=== PATIENT | female | born 1960 | race Caucasian/White ===

== ENCOUNTER 2021-05-20 06:57 | Outpatient (REF) | payer OTHER, SELFPAY ==
[2021-05-20 07:13] LABS: Hemoglobin 11.5 g/dl (12.0-16.0); Mean Corpuscular HGB Conc 31.9 g/dl (31.0-35.0); Mean Corpuscular Hemoglobin 33.6 pg (27.0-33.0); Mean Corpuscular Volume 105.3 fL (80-98); Mean Platelet Volume 9.4 fL (9.4-12.3); Platelet Count 446 X10*3/uL (160-400); Red Blood Count 3.42 X10*6/uL (4.20-5.50); Red Cell Distribution Width 12.9 % (11.0-16.0); White Blood Count 8.3 X10*3/uL (4.8-10.8)
[2021-05-20 07:34] LABS: Alanine Aminotransferase 12 U/L (0-31); Albumin Level 3.1 g/dL (3.5-5.0); Alkaline Phosphatase 91 U/L (39-117); Anion Gap 13 (12-20); Aspartate Amino Transferase 19 U/L (5-31); Bilirubin Total 0.2 mg/dL (0.0-1.0); Blood Urea Nitrogen 16 mg/dL (9-16); Calcium 8.7 mg/dL (8.4-10.2); Carbon Dioxide 28 mmol/L (22-29); Chloride 105 mmol/L (96-108); Estimated Glomerular Filt Rate > 60; Glucose Random 80 mg/dL (60-115); Sodium 142 mmol/L (135-145); Total Protein 6.5 g/dL (6.5-8.0)
[2021-05-20 08:09] LABS: Carbamazepine Tegretol 4.2 mcg/mL (5.0-12.0); Valproate 22.6 mcg/mL (50.0-100.0)
== END 2021-05-20 06:58 | disposition home or self-care (01) ==
LOC: HO.MMNH1L 06:57
PROVIDERS: Visit Provider Family Medicine
DX: S72.001D Fracture of unspecified part of neck of right femur, subsequent encounter for closed fracture with routine healing (principal); G40.909 Epilepsy, unspecified, not intractable, without status epilepticus; Z79.899 Other long term (current) drug therapy
CPT/HCPCS: 36415; 80053; 80156; 80164; 80185; 85027

== ENCOUNTER 2021-05-26 21:20 | Outpatient (REF) | payer OTHER, SELFPAY | END 2021-05-26 21:21 | disposition home or self-care (01) | LOC: HO.MMNH1L 21:20 | PROVIDERS: Visit Provider Family Medicine | DX: Z13.89 Encounter for screening for other disorder (principal) ==

== ENCOUNTER 2021-06-02 00:20 | Outpatient (REF) | payer OTHER, SELFPAY | END 2021-06-02 00:21 | disposition home or self-care (01) | LOC: HO.MMNH1L 00:20 | PROVIDERS: Visit Provider Family Medicine | DX: Z13.89 Encounter for screening for other disorder (principal) ==

== ENCOUNTER 2021-07-29 15:41 | Outpatient (REF) | payer OTHER, SELFPAY ==
[2021-07-29 17:05] LABS: Carbamazepine Tegretol 4.1 mcg/mL (5.0-12.0); Phenytoin Dilantin 11.3 ug/mL (10.0-20.0)
== END 2021-07-29 15:42 | disposition home or self-care (01) ==
LOC: HO.LAB 15:41
PROVIDERS: Visit Provider Psychiatry & Neurology Neurology
DX: G40.909 Epilepsy, unspecified, not intractable, without status epilepticus (principal); Z79.899 Other long term (current) drug therapy
CPT/HCPCS: 36415; 80156; 80185

== ENCOUNTER 2023-08-02 12:04 | Outpatient (REF) | payer OTHER, SELFPAY ==
[2023-08-02 13:36] LABS: Carbamazepine Tegretol 3.8 mcg/mL (5.0-12.0); Phenytoin Dilantin 15.7 ug/mL (10.0-20.0); Valproate 57.7 mcg/mL (50.0-100.0)
== END 2023-08-02 12:05 | disposition home or self-care (01) ==
LOC: HO.LAB 12:04
PROVIDERS: Visit Provider Psychiatry & Neurology Neurology
DX: G40.909 Epilepsy, unspecified, not intractable, without status epilepticus (principal)
CPT/HCPCS: 36415; 80156; 80164; 80185

== ENCOUNTER 2023-09-06 11:57 | Outpatient (REF) | payer OTHER, SELFPAY ==
[2023-09-06 12:04] VITALS: BP 135/81; PULSE 90; RESP 18; TEMP 36.4; O2SAT 98
[2023-09-06 12:08] VITALS: BMI 29.4
[2023-09-06 12:10] VITALS: BP 135/81; PULSE 90; RESP 18; TEMP 36.4; O2SAT 98
[2023-09-06 15:25] VITALS: BMI 29.4
== END 2023-09-06 11:58 | disposition home or self-care (01) ==
LOC: HO.MS 11:57
PROVIDERS: PCP Internal Medicine; Visit Provider Ophthalmology
PROC: (CPT 66761; principal; 2023-09-06 16:40)
DX: H40.031 Anatomical narrow angle, right eye (principal)
CPT/HCPCS: 66761

== ENCOUNTER 2023-09-13 11:36 | Outpatient (REF) | payer OTHER, SELFPAY ==
[2023-09-13 11:41] VITALS: BMI 27.6
[2023-09-13 11:42] VITALS: BP 142/86; PULSE 84; RESP 18; TEMP 35.8; O2SAT 98
== END 2023-09-13 11:37 | disposition home or self-care (01) ==
LOC: HO.MS 11:36
PROVIDERS: PCP Internal Medicine; Visit Provider Ophthalmology
PROC: (CPT 66761; principal; 2023-09-13 14:40)
DX: H40.032 Anatomical narrow angle, left eye (principal)
CPT/HCPCS: 66761

== ENCOUNTER 2024-01-12 09:50 | Outpatient (REF) | payer OTHER, SELFPAY ==
[2024-01-12 10:48] LABS: Valproate 65.2 mcg/mL (50.0-100.0)
[2024-01-12 10:54] LABS: Phenytoin Dilantin 5.3 ug/mL (10.0-20.0)
== END 2024-01-12 09:51 | disposition home or self-care (01) ==
LOC: HO.LAB 09:50
PROVIDERS: PCP Internal Medicine; Visit Provider Psychiatry & Neurology Neurology
DX: G40.909 Epilepsy, unspecified, not intractable, without status epilepticus (principal); Z79.899 Other long term (current) drug therapy
CPT/HCPCS: 36415; 80156; 80164; 80185

== ENCOUNTER 2024-04-12 10:10 | Outpatient (REF) | payer OTHER, SELFPAY ==
[2024-04-12 12:07] LABS: Valproate 61.7 mcg/mL (50.0-100.0)
== END 2024-04-12 10:11 | disposition home or self-care (01) ==
LOC: HO.LAB 10:10
PROVIDERS: PCP Internal Medicine; Visit Provider Psychiatry & Neurology Neurology
DX: G40.909 Epilepsy, unspecified, not intractable, without status epilepticus (principal)
CPT/HCPCS: 36415; 80156; 80164

== ENCOUNTER 2025-08-08 13:32 | Outpatient (AMB) | payer OTHER, SELFPAY ==
--- NOTE | 2025-08-08 13:33 | A.OFFVIS_ITS ---
Intake Visit Reasons: 6M Sz Allergies No Known Allergies Allergy (Verified 08/08/25 13:34) Medication List - Last Reconciled 08/08/25 by Shannen Landa CNP alprazolam 0.5 mg PO Q12H PRN carbamazepine 200 mg PO QID divalproex orally 1 tablet three times a day and 2 tablets at bedtime; naproxen 500 mg PO Q12H PRN phenytoin sodium extended mg PO DAILY sumatriptan succinate take 1 tab at onset of headache; if no relief, may repeat 1 tab after at least 2 hrs; max = 2 tabs/24 hrs PO HPI Comments Details: No seizures. Under a lot of stress lately, as her son found out he has cancer again (third time, and has appointment next month in [place]), and has upcoming surgery. More anxious and asking for alprazolam refill. Few occasional migraines that can be triggered by stress and needs sumatriptan refill. Balance was stable, no falls. Overall, her balance is much better after adjusting her medications, but still a bit unsteady. Brain MRI on 11/19/23 at [facility] shows disproportionate cerebellar atrophy and mild, confluent periventricular white matter hyperintensity. The cerebellar atrophy was also evident on her CT scan done in April 2023. MRI of the brain in 2020 was normal. 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 She had multiple falls in 6 month period. Leg feel weak at times. Fell weeding and hit head on curb with black eye in summer 2022. Has been dizzy. Broke her left knee cap 08/02/21 and still has pain. No more periods of things jumping vertically in her vision. Substance Abuse Clinician noted [employer]. puts out her meds and ensures she takes them. She usually stares and does not speak and may not be aware. 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 She describes them as a staring episode that can last for a few seconds can occur as often as once a week. She does not drive. She takes her medications faithfully. No other health issues. Her migraines are recurring occasionally. Review of Systems Const Denies chills, Denies daytime sleepiness, Denies difficulty sleeping, Denies fatigue, Denies fever(s), Denies frequent falls, Reports headache(s), Denies increased appetite, Denies poor appetite, Denies snoring, Denies weakness, Denies weight gain and Denies weight loss Eyes Denies loss of vision ENT Denies vertigo, Denies dizziness, Reports headache(s) and Denies neck pain Card Denies chest pain at rest, Denies chest pain with activity, Denies syncope, Denies leg edema, Denies palpitations, Denies dyspnea and Denies dyspnea on exertion Resp Denies cough, Denies dyspnea, Denies dyspnea on exertion and Denies snoring GI Denies abdominal pain, Denies constipation, Denies heartburn, Denies diarrhea and Denies nausea Denies urinary frequency, Denies urinary incontinence and Denies urinary urgency Musc Denies abnormal gait, Denies back pain, Denies myalgias, Denies arthralgias, Denies neck pain, Denies numbness and Denies tingling Neuro Denies abnormal gait, Denies vertigo, Denies dizziness, Denies syncope, Denies frequent falls, Reports headache(s), Denies lack of coordination, Denies loss of vision, Denies memory loss, Denies numbness, Denies Other visual disturbances, Denies restless legs, Denies seizure-like activity, Denies tingling, Denies paresthesias, Denies tremor(s), Denies weakness and Reports other (balance difficulty) Psych Denies anxiety, Denies depression, Denies auditory hallucinations, Denies memory loss and Denies visual hallucinations Endo Denies fatigue and Denies palpitations Physical Exam Const Other: General Appearance:? normal, in no acute distress. Heart:? S1, S2 normal, no murmurs. Lungs:? clear anteriorly and posteriorly. Musculoskeletal:? normal. Extremities:? no edema. Psych:? alert, oriented, cognitive function intact, cooperative with exam. Neuro Other: Abnormal Neurological Findings:?High frequency downbeat nystagmus in all eye positions. Diminished vibratory sensation below R ankle. +Rhomberg. Slightly broad based gait with significant truncal ataxia with tandem walking and on turning. Tearful. Mental Status: alert and oriented X 3. Normal attention, orientation, memory, and affect. Cranial Nerves: Pupils are equal, round, and reactive to light. External ocular muscles are intact. Visual harmon are full, no ptosis. Face is symmetrical, no facial weakness or droop. Facial sensations are normal. Tongue protrudes in midline. Palate elevates symmetrically. Shoulder shrugging is normal Motor Examination: Normal muscle tone, bulk and strength. No atrophy or fasciculations. No drift of the extended upper extremities. DTR 2+. Plantars are flexor. Sensory Exam: As above. Coordination: As above. Gait Exam: As above. Cerebellar Signs: Ygxaik-[id number] is okay. Extrapyramidal System: No tremor, rigidity with normal facial expressions. No bradykinesia. No bradyphrenia. Normal arm swing and posture. No propulsion or retropulsion. Speech: Normal. Results Reviewed Results Reviewed: 04/2023 CT Brain: No acute abnormalities. Cerebellar atrophy 12/14/23 NCV sensory greater than motor axonal neuropathy in the lower extremities. MRI brain shows disproportionate cerebellar atrophy.Mild aurea pventricular confluent white matter hyperintensity Assessment & Plan Assessment & Plan (1) Seizure disorder: Code(s): G40.909 - Epilepsy, unspecified, not intractable, without status epilepticus Category: Medical Plan: Continue carbamazepine 200mg 1 tablet four times a day. Continue Depakote DR 500mg 1 tablet three times a day and 2 tablets at bedtime. Continue phenytoin sodium 100mg 1 capsule daily. Follow up in 6 months or sooner as needed. (2) Migraine: Code(s): G43.909 - Migraine, unspecified, not intractable, without status migrainosus Category: Medical Qualifiers: Migraine type: unspecified Status migrainosus presence: without status migrainosus Intractability: not intractable Qualified Code(s): G43.909 - Migraine, unspecified, not intractable, without status migrainosus Plan: Continue sumatriptan 100mg 1 tablet as needed for migraine. Continue naproxen 500mg 1 tablet with food or milk as needed q12h for pain. (3) Peripheral neuropathy: Code(s): G62.9 - Polyneuropathy, unspecified Category: Medical Qualifiers: Peripheral neuropathy type: polyneuropathy, unspecified Qualified Code(s): G62.9 - Polyneuropathy, unspecified (4) Dizziness: Code(s): R42 - Dizziness and giddiness Category: Medical (5) Anxiety: Code(s): F41.9 - Anxiety disorder, unspecified Category: Medical Plan: Continue alprazolam 0.5mg 1 tablet as needed q12h for anxiety #180 for 90 days. Plan Appears ataxia is multifactorial related to sensory neuropathy and cerebellar atrophy which could both be side effects of her long-term Dilantin use, medications adjusted with improvement in balance. Medications: New alprazolam 0.5 mg PO Q12H PRN 180 tabs 0RF anxiety 90 days sumatriptan succinate take 1 tab at onset of headache; if no relief, may repeat 1 tab after at least 2 hrs; max = 2 tabs/24 hrs PO 30 tabs 1RF 90 days alprazolam 0.5 mg PO Q12H 30 days PRN 60 tabs 1RF anxiety sumatriptan succinate take 1 tab at onset of headache; if no relief, may repeat 1 tab after at least 2 hrs; max = 2 tabs/24 hrs PO 30 days 10 tabs 5RF Coding Level of Care Code Est Pt Level 4 (56270) Diagnoses Seizure disorder G40.909 Migraine without status migrainosus, not intractable, unspecified migraine type G43.909 Migraine type: unspecified Status migrainosus presence: without status migrainosus Intractability: not intractable Peripheral polyneuropathy G62.9 Peripheral neuropathy type: polyneuropathy, unspecified Dizziness R42 Anxiety F41.9
--- OUTSIDE RECORDS SUMMARY | 2025-08-08 17:12 | XMS_ITS ---
Author Name [facility] Organization Unknown Care Team Organization Name Specialty Phone Email Start Date End Da te [facility] 09/01/2022 4
--- OUTSIDE RECORDS SUMMARY | 2025-08-08 17:12 | XMS_ITS ---
Author Organization [facility] Care Team Providers Care Clerk Operator Name Role Phone Jon Montilla Unavailable Unavailable Flori Stevens Unavailable Unavailable Allergies and adverse reactions No Known Allergies Care Team Name Role Address Phone Organization Dates Flori Stevens PCP [address], [place], [address], [facility] (Office): [facility] 05/17/2021 - 05/23/2021 Jon Montilla [address], [place], [address], [place] (Office): : [facility] 05/17/2021 - 05/23/2021 Immunizations Immunization Status Vaccine Details Vaccine Code CodeSystem Date Notes TB 2 Step Mantoux Skin Test completed tuberculin skin test; unspecified formulation lotNumber: [id number] expiry: 12/22/2021 Mfg: [employer] Given 0.1 ml Right Forearm intradermally Step 1 of Multi-step with next step required 98 CVX created date: 05/17/2021 consent date: 05/19/2021 administere d date: 05/18/2021 SARS-COV-2 (COVID-19) completed SARS-COV-2 (COVID-19) vaccine, mRNA, spike protein, LNP, preservative free, 30 mcg/0.3mL dose Step 2 of Multi-step with next step required 208 CVX created date: 05/17/2021 administere d date: 03/07/2021 SARS-COV-2 (COVID-19) completed SARS-COV-2 (COVID-19) vaccine, mRNA, spike protein, LNP, preservative free, 30 mcg/0.3mL dose Step 1 of Multi-step with next step required 208 CVX created date: 05/17/2021 administere d date: 02/14/2021 Mental Status Section Date Assessment Total Score Description 05/23/2021 CAM 0 No delirium ind icated 05/22/2021 BIMS 15 cognitively int act CAM 0 No delirium ind icated PHQ-9 02 minimal depress ion Insurance Providers Problems Problem # Description Date of onset Resolved Date Code CodeSystem Concern Status 1 ABSENCE EPILEPTIC SYNDROME, NOT INTRACTABLE, WITHOUT STATUS EPILEPTICUS 05/17/[address] active 2 CLUSTER HEADACHE SYNDROME, UNSPECIFIED, INTRACTABLE 05/17/[address] active 3 HISTORY OF FALLING 05/17/[address] active 4 PRESENCE OF RIGHT ARTIFICIAL ELBOW JOINT 05/17/[address] active 5 DISPLACED FRACTURE OF BASE OF NECK OF RIGHT FEMUR, SUBSEQUENT ENCOUNTER FOR CLOSED FRACTURE WITH ROUTINE HEALING 05/16/[address] active Reason for Referral No Reasons for Referral Entered Social History Social History Observation Description Start Date End Date Code Code System Current Smoking Status Tobacco smoking consumption unknown 513437318 SNOMED CT Sex Assigned At Female 1960 84319-0 [facility] Gender Identity Sexual Orientation Vital Signs Code Code System Vitals Name Values and Units Timing Information 33195-6 [facility] Pain Level Value=0.0 05/23/2021 9279-1 [facility] Respiratory Rate Value=18.0 Units=/m in 05/23/2021 8310-5 [facility] Body Temperature Value=97.4 Units= F 05/23/2021 81523-5 [facility] O2 % BldC Oximetry Value=95.0 Units= % 05/23/2021 8462-4 [facility] Blood Pressure-Diastolic Value=85 Un its=mmHg 05/22/2021 8480-6 [facility] Blood Pressure-Systolic Ynfjz=351 Un its=mmHg 05/22/2021 8867-4 [facility] Heart rate Value=87.0 Units=/min 26427-5 [facility] Weight Iteks=378.6 Units=Lbs 8302-2 [facility] Height Value=59.0 Units=Inches 05/17/2021
== END 2025-08-08 15:43 | disposition home or self-care (01) ==
LOC: HO.HSM 13:32
PROVIDERS: PCP Internal Medicine; Referring Provider Internal Medicine; Visit Provider Registered Nurse
DX: G40.909 Epilepsy, unspecified, not intractable, without status epilepticus (principal); G43.909 Migraine, unspecified, not intractable, without status migrainosus; G62.9 Polyneuropathy, unspecified; R42 Dizziness and giddiness; F41.9 Anxiety disorder, unspecified
CPT/HCPCS: 99214